=== PATIENT | male | born 1950 | race Caucasian/White ===

== ENCOUNTER → 2018-09-13 | Outpatient (CLI) | payer OTHER ==
[~2018-09-13] VITALS: Ht 180.3 cm; Wt 143.8 kg
[~2018-09-13] MED LIST: REGADENOSON 0.4 MG/5 ML PF SYG IVP SCH
== END | disposition home or self-care (01) ==
LOC: SHCH 08:18
PROVIDERS: ATTEND Internal Medicine Cardiovascular Disease
DX: I48.2 Chronic atrial fibrillation (principal)
CPT/HCPCS: 78452; 93017; 96374; A9500 ×2; J2785

== ENCOUNTER 2018-12-16 06:24 | Day surgery (SDC) | payer OTHER ==
[2018-12-12 08:44] VITALS: BP 132/79
[2018-12-12 08:49] LABS: BASOPHILS % (AUTO) 0.8 % (0.0-5.0); LYMPHOCYTES % (AUTO) 15.3 % (21.0-51.0); MEAN CORPUSCULAR HEMOGLOBIN 33.4 pg (27.0-33.0); MEAN CORPUSCULAR HGB CONC 34.6 g/dL (32.0-36.0); MEAN CORPUSCULAR VOLUME 96.5 fL (79-99); MONOCYTES % (AUTO) 6.7 % (3.0-13.0); NEUTROPHILS % (AUTO) 76.2 % (40.0-77.0); PLATELET COUNT (AUTO) 206 K/uL (130-400); RED BLOOD CELL COUNT(AUTO) 4.36 MIL/uL (4.50-6.20); RED CELL DISTRIBUTION WIDTH 13.9 % (11.0-15.5); WHITE BLOOD COUNT (AUTO) 9.4 K/uL (4.8-10.8)
[2018-12-12 08:49] LABS: APPEARANCE,URINE Clear (CLEAR); BILIRUBIN,URINE Negative (NEGATIVE); COLOR,URINE Yellow (YELLOW); GLUCOSE, URINE (UA) Negative (NEGATIVE); KETONES,URINE Negative (NEGATIVE); LEUKOCYTE ESTERASE ,URINE Negative (NEGATIVE); NITRATE,URINE Negative (NEGATIVE); OCCULT BLOOD,URINE Negative (NEGATIVE); PROTEIN,URINE Negative (NEGATIVE); UROBILINOGEN,URINE 0.2 mg/dL (0.2-1.0)
[2018-12-12 08:55] LABS: CREATININE 1.1 mg/dL (0.5-1.5); POTASSIUM 4.6 mmol/L (3.5-5.1)
[2018-12-12 08:59] LABS: INR 0.93 (0.85-1.15); PARTIAL THROMBOPLASTIN TIME 28.5 SEC (26.3-35.5); PROTHROMBIN TIME 9.8 SEC (9.6-11.6)
[2018-12-16] VITALS (9 sets, daily range): BP systolic 105–140; BP diastolic 62–77
[~2018-12-16] VITALS: Ht 180.3 cm; Wt 148.7 kg
[~2018-12-16 06:24] MED LIST changes: +ALBU8.5H8 IH; +ASPI-1197 PO; +CETI10TA57 PO; +FURO20TA4 PO; +GABA600T10 PO; +HYDR-4068 PO; +LISI10TA7 PO; +MAGN400C PO; +MELA1TAB28 PO; +PRAM1TAB3 PO; +PRAV20TA4 PO; -REGADENOSON 0.4 MG/5 ML PF SYG IVP SCH; +TIOT4MIS3 IH; +UBID400C6 PO; +[UNRECOGNIZED DRUG - OTHER] PO
--- NOTE | 2018-12-16 06:30 | NUR ---
PRE-PROCEDURE RECEIVED FROM HOME TO DAY 14 FOR SCHEDULED LHC. AWAKE IN NO ACUTE DISTRESS. PT WITH EXERTIONAL DYSPNEA. DENIES CHEST PAIN. CONNECTED TO CONTINUOUS CARDIOPULMONARY MONITORING. SIDE RAILS UP X2, BED IN LOWEST POSITION, AND CALL LIGHT W/IN REACH.
[2018-12-16] MEDS ORDERED: SODIUM CHLORIDE 0.9% 1000ML 1,000 ML IV ONE (06:39)
[2018-12-16] MEDS ORDERED: GABA600T10 PO (07:23)
[2018-12-16] MEDS ORDERED: BACL10TA PO (07:31)
[2018-12-16] MEDS ORDERED: IOHEXOL 350 MG/ML 100ML INFUS..BTL IV ONE (08:04)
[2018-12-16] MEDS ORDERED: IOHEXOL-350 50ML VIAL IV ONE ×2 (08:04→09:08)
[2018-12-16] MEDS ORDERED: NITROGLYCERIN 5 MG/ML 10 ML VIAL IV ONE (08:04)
[2018-12-16] MEDS ORDERED: BIVALIRUDIN 250 MG/VIAL IV ONE (08:04)
[2018-12-16] MEDS ORDERED: LIDOCAINE HCL 2% 20ML ONE (08:05)
[2018-12-16] MEDS ORDERED: MIDAZOLAM HCL 1 MG/ML 2ML VIAL ONE (08:05)
--- NOTE | 2018-12-16 08:15 | NUR ---
PROCEDURE TRANSFERRED TO INBOUND CUSTOMER SERVICE AGENT BY [facility] FOR [facility]. AWAKE IN NO ACUTE DISTRESS.
[2018-12-16] MEDS ORDERED: FENTANYL CITRATE PF 50 MCG/1 ML 2ML VIAL ONE (08:49)
[2018-12-16] MEDS ORDERED: IOHEXOL-350 75 ML VIAL IV ONE (09:08)
[2018-12-16] MEDS ORDERED: SODIUM CHLORIDE 0.9% 1000ML 1,000 ML IV SCH (09:25)
--- NOTE | 2018-12-16 09:48 | NUR ---
POST-PROCEDURE RECEIVED FROM ATTENDANCE SECRETARY VIA BED S/P [facility]. AWAKE IN NO ACUTE DISTRESS. CONNECTED TO CONTINUOUS CARDIOPULMONARY MONITORING. CATH SITE W/O SIGNS OF BLEEDING;PERCLOSE DRESSING CLEAN, DRY, AND INTACT;SITE SOFT, NON-TENDER. SIDE RAILS UP X2, BED IN LOWEST POSITION, AND CALL LIGHT W/IN REACH.
--- NOTE | 2018-12-16 10:00 | NUR ---
MD ROUNDS DR. PAYNE IN TO SPEAK WITH PT AND . PT AND UPDATED ON PROCEDURE AND FINDINGS. PLAN IS FOR MEDICAL MANAGEMENT. BOTH VERBALIZED UNDERSTANDING.
--- NOTE | 2018-12-16 10:41 | NUR ---
ACTIVITY HOB ELEVATE TO 20 DEGREES.
--- NOTE | 2018-12-16 10:42 | NUR ---
DIET ATE 100% BREAKFAST.
--- NOTE | 2018-12-16 13:18 | NUR ---
ACTIVITY UP TO CHAIR WITH MINIMAL ASSIST X.1 GAIT STEADY. CATH SITE W/O SIGNS OF BLEEDING; PERCLOSE DRESSING CLEAN AND DRY; SITE SOFT, NON-TENDER.
--- NOTE | 2018-12-16 13:21 | NUR ---
DISCHARGE DAY PT DISCHARGE INSTRUCTION SHEET, MED REC. AND PT SUMMARY REVIEWED WITH PT AND . EDUCATED ON HOW TO CHECK CATH SITE FOR BLEEDING AND IF PUNCTURE SITE STARTS BLEEDING APPLY DIRECT PRESSURE OVER THE AREA AND SEEK MEDICAL ATTENTION IMMEDIATELY. BOTH VERBALIZED UNDERSTANDING. OPPORTUNITY GIVEN TO ASK QUESTION. NO QUESTIONS VOICED.
== END 2018-12-16 13:30 | disposition home or self-care (01) ==
LOC: DAH 06:24
PROVIDERS: ATTEND Internal Medicine Cardiovascular Disease
DX: R94.39 Abnormal result of other cardiovascular function study (principal); I25.10 Atherosclerotic heart disease of native coronary artery without angina pectoris; I11.0 Hypertensive heart disease with heart failure; I48.0 Paroxysmal atrial fibrillation; I50.32 Chronic diastolic (congestive) heart failure; G47.30 Sleep apnea, unspecified; E66.01 Morbid (severe) obesity due to excess calories; N40.0 Benign prostatic hyperplasia without lower urinary tract symptoms; Z79.01 Long term (current) use of anticoagulants; Z79.899 Other long term (current) drug therapy; Z85.46 Personal history of malignant neoplasm of prostate; J44.9 Chronic obstructive pulmonary disease, unspecified; Z87.891 Personal history of nicotine dependence; Z96.652 Presence of left artificial knee joint; Z90.49 Acquired absence of other specified parts of digestive tract; Z98.890 Other specified postprocedural states; Z88.7 Allergy status to serum and vaccine; Z68.42 Body mass index [BMI] 45.0-49.9, adult; Z82.49 Family history of ischemic heart disease and other diseases of the circulatory system
CPT/HCPCS: 36415; 71045; 80048; 81003; 85025; 85610; 85730; 93005; 93458; A4215; A4216; A4221; A4222; A4223 ×3; A4606; A4663; C1760; C1894; J1644; J2250; J3010; J3490 ×2; J7030; Q9965; Q9967 ×3; 99156; 99157; J0583